=== PATIENT | female | born 1940 | race American Indian/Alaskan Native ===

== ENCOUNTER 2017-03-01 06:33 | Emergency (ER) | payer MEDICARE ==
[2017-03-01 06:47] VITALS: RESP 18
--- NOTE | 2017-03-01 07:37 | C.PDOC ---
History Of Present Illness 77 y/o female with htn and dyslipidemia c/o bilateral back pain, right more than left, from upper back that radiates to lower back that started on Thursday with no preceding injury or heavy lifting. pain is getting worse, not relieved with Aleve. Pain related to movement, and pt is most comfortable in left lateral decubitus position. pt denies chest pain, cough, sob, fever, chills. denies any urinary symptoms, denies abdominal pain; pt vomited once on Thursday. Time Seen by Provider: 03/01/17 07:13 Chief Complaint (Nursing): Back Pain History Per: Patient, Family History/Exam Limitations: no limitations Onset/Duration Of Symptoms: Days (3) Current Symptoms Are (Timing): Worse Quality Of Discomfort: Unable To Describe Severity: Moderate Previous Symptoms: None Associated Symptoms: None Exacerbating Factor(s): Movement Past Medical History Reviewed: Historical Data, Nursing Documentation, Vital Signs Vital Signs: Last Vital Signs Temp 98.8 F 03/01/17 12:27 Pulse 86 03/01/17 12:27 Resp 18 03/01/17 12:27 BP 132/78 03/01/17 12:27 Pulse Ox 86 L 03/01/17 12:27 - Medical History PMH: HTN, Hypercholesterolemia, Hyperlipidemia Denies: Chronic Kidney Disease Surgical History: No Surg Hx Family History: States: Unknown Family Hx - Social History Hx Tobacco Use: No Hx Alcohol Use: No Hx Substance Use: No - Immunization History Hx Tetanus Toxoid Vaccination: No Hx Influenza Vaccination: No Hx Pneumococcal Vaccination: No Review Of Systems Constitutional: Negative for: Fever, Chills Cardiovascular: Negative for: Chest Pain, Light Headedness Respiratory: Negative for: Cough, Shortness of Breath Gastrointestinal: Positive for: Vomiting (once on Thursday). Negative for: Nausea , Abdominal Pain Genitourinary: Negative for: Dysuria, Frequency, Hematuria Musculoskeletal: Positive for: Back Pain. Negative for: Neck Pain, Shoulder Pain Neurological: Negative for: Weakness, Numbness Physical Exam - Physical Exam Appears: Non-toxic, Other (appears uncomfortable. ) Skin: Warm, Dry Head: Atraumatic, Normacephalic Neck: Normal ROM Chest: Symmetrical, No Deformity Cardiovascular: Rhythm Regular, No Murmur Respiratory: Normal Breath Sounds, No Accessory Muscle Use, No Rales, No Rhonchi , No Wheezing Gastrointestinal/Abdominal: Bowel Sounds, Soft, No Tenderness, No Guarding, No Rebound Back: Normal Inspection, Paraspinal Tenderness (upper right and left back, right more than left along rhomboid) Extremity: Bilateral: Atraumatic, No Pedal Edema Pulses: Left Dorsalis Pedis: Normal, Right Dorsalis Pedis: Normal Neurological/Psych: Oriented x3, Normal Speech, Normal Cognition ED Course And Treatment - Laboratory Results Result Diagrams: 03/01/17 08:02 03/01/17 08:02 ECG Interpretation: No Changes From Prior, Abnormal Interpretation Of ECG: sinus bradycardia, 55, left axis deviation, anteroseptal infarct, age undertermined. O2 Sat by Pulse Oximetry: 100 Pulse Ox Interpretation: Normal - Radiology CXR: Read By Radiologist CXR Interpretation: No: Infiltrates Medical Decision Making Medical Decision Makin y.o female with bilateral back pain; likely musculoskelatal, will check labs , ekg, cxr, analgesic and re-eval. 1244 pt feeling better after toradol. discusses with Dr Serra; pt will f/u with him on Thu. will d/c with 5 mg flexeril and ibuprofen or tylenol. Disposition Discussed With : Aminata Serra Doctor Will See Patient In The: Office Counseled Patient/Family Regarding: Studies Performed, Diagnosis, Need For Followup, Rx Given - Disposition Referrals: Aminata Serra MD [Staff Provider] - Disposition: HOME/ ROUTINE Disposition Time: 12:46 Condition: IMPROVED Additional Instructions: Take Tylenol or Ibuprofen/aleve for pain as directed. Take muscle relaxant two times a day; may make you sleepy or dizzy, so please take when someone is home with you. Recommend hot water bottle/warm pack to back several times a day. No heavy lifting. Follow up with Dr Serra in his office on Thu. Prescriptions: Cyclobenzaprine [Flexeril] 5 mg PO BID #10 tab Forms: General Discharge Instructions - Clinical Impression Clinical Impression: Thoracic back sprain
[2017-03-01 08:07] LABS: BASO % 0.9 % (0.0-2.0); EOS # 0.1 K/uL (0.0-0.7); HEMATOCRIT 40.4 % (34.0-47.0); LYMPH # 2.2 K/uL (1.0-4.3); LYMPH % 39.8 % (20.0-40.0); MEAN CELL VOLUME 87.8 fL (81.0-99.0); MEAN CORPUSCULAR HEMOGLOBIN 29.1 pg (27.0-31.0); MEAN CORPUSCULAR HGB CONC 33.1 g/dL (33.0-37.0); MEAN PLATELET VOLUME 7.4 fL (7.2-11.7); MONO # 0.5 K/uL (0.0-0.8); MONO % 8.6 % (0.0-10.0); RED CELL DISTRIBUTION WIDTH 15.1 % (11.5-14.5); WHITE BLOOD COUNT 5.6 K/uL (4.8-10.8)
[2017-03-01 08:17] LABS: CHLORIDE 104 mmol/L (98-107)
[2017-03-01 08:18] LABS: POTASSIUM 4.9 mmol/L (3.6-5.2); SODIUM 141 mmol/L (132-148)
[2017-03-01 08:20] LABS: ALB/GLOB RATIO 1.3 (1.0-2.1); ALKALINE PHOSPHATASE 79 U/L (38-126); AST/SGOT 40 U/L (14-36); BILIRUBIN,TOTAL 1.7 mg/dL (0.2-1.3); BLOOD UREA NITROGEN 17 mg/dL (7-17); CARBON DIOXIDE 22 mmol/L (22-30); GFR AFRICAN-AMERICAN > 60; TOTAL PROTEIN 8.1 g/dL (6.3-8.3)
[2017-03-01 08:21] LABS: GLUCOSE,RANDOM 90 mg/dL (65-105)
[2017-03-01 08:30] LABS: ALT/SGPT < 6 U/L (9-52)
[2017-03-01 08:31] LABS: CALCIUM 9.1 mg/dl (8.6-10.4)
--- NOTE | 2017-03-01 10:40 | RAD ---
HISTORY: back pain COMPARISON: Chest x-ray performed 11/13/15 TECHNIQUE: Chest PA and lateral FINDINGS: LUNGS: No focal consolidation. Please note that chest x-ray has limited sensitivity for the detection of pulmonary masses. PLEURA: No significant pleural effusion identified. No definite pneumothorax . CARDIOVASCULAR: Grossly stable. Ectatic aorta containing dense atherosclerotic calcifications. Heart size appears within normal limits. OSSEOUS STRUCTURES: Degenerative changes. VISUALIZED UPPER ABDOMEN: Unremarkable. OTHER FINDINGS: None. IMPRESSION: No active disease. Findings as above.
[2017-03-01 11:51] LABS: RBC URINE 1 /hpf (0-3); URINE BILIRUBIN NEGATIVE (NEGATIVE); URINE BLOOD NEGATIVE (NEGATIVE); URINE COLOR Yellow (YELLOW); URINE GLUCOSE (UA) NORMAL (Normal); URINE KETONE NEGATIVE (NEGATIVE); URINE LEUKOCYTE ESTERASE NEG Leu/uL (Negative); URINE PROTEIN NEGATIVE (NEGATIVE); URINE UROBILINOGEN NORMAL mg/dL (0.2-1.0); WBC URINE < 1 /hpf (0-5)
[2017-03-01 12:30] VITALS: BP 132/78; PULSE 86; TEMP 98.8
[2017-03-01 12:48] VITALS: O2SAT 100
--- NOTE | 2017-03-03 14:04 | CARD ---
APPROVED REPORT EKG Measurement Heart [id number] <Conclusion> Sinus bradycardia Left axis deviation Anteroseptal infarct, age undetermined Abnormal ECG
== END 2017-03-01 12:47 | disposition home or self-care (01) ==
LOC: C.ER 06:33
DX: S23.3XXA Sprain of ligaments of thoracic spine, initial encounter (principal); X58.XXXA Exposure to other specified factors, initial encounter
CPT/HCPCS: 71020; 80053; 81001; 84484; 85025; 93005; 96374; 99284; J1885

== ENCOUNTER 2018-06-02 07:46 | Day surgery (SDC) | payer MEDICARE ==
[2018-05-28 10:01] VITALS: BMI 26.6
[2018-06-02] MEDS ORDERED: Bupivacaine 0.25% 20 ML INJ IJ ONE (09:33)
[2018-06-02] MEDS ORDERED: Lidocaine/Epinephrine 1% 1:100000 10 ML IJ ONE (09:33)
[2018-06-02] MEDS ORDERED: ceFAZolin IV 1 gm in Dextrose 1 GM/50 ML BAG IVPB ONE (09:33)
[2018-06-02] MEDS ORDERED: Midazolam 2 MG/2 ML VIAL ONE (09:57)
--- NOTE | 2018-06-02 10:49 | PCM.SURG1 ---
Surgeon's Initial Post Op Note - Surgeon's Notes Surgeon: Brijesh Coreas MD Cake Maker: MARIA T Dela Cruz Type of Anesthesia: MAC Pre-Operative Diagnosis: Sebaceous cyst of Neck 1x1 cm Operative Findings: Sebaceous cyst of Neck 2 x1 cm Post-Operative Diagnosis: Sebaceous cyst of Neck 2 x1 cm Operation Performed: Excision of Sebaceous cyst of Neck 2x1 cm. Layered closure of wound 2x1x2 cm Specimen/Specimens Removed: Sebaceous cyst of Neck Estimated Blood Loss: EBL {In ML}: 5 Blood Products Given: N/A Drains Used: No Drains Post-Op Condition: Good Date of Surgery/Procedure: 06/02/18 Time of Surgery/Procedure: 10:49
[2018-06-02 12:30] VITALS: PULSE 58; RESP 16
[2018-06-02 12:31] VITALS: BP 133/78; TEMP 97.6; O2SAT 97
--- NOTE | 2018-06-02 22:28 | OP ---
Copied To: Everett Coreas MD Attending MD: Everett Coreas MD PROCEDURE DATE: 06/02/2018 PREOPERATIVE DIAGNOSIS: Sebaceous cyst of the neck, approximately 1 cm size. POSTOPERATIVE DIAGNOSIS: Sebaceous cyst of the neck, 2 x 1 cm size. PROCEDURES DONE: 1. Excision of the sebaceous cyst of the neck, 2 x 1 cm size. 2. Layered closure of the wound, 2 x 1 x 2 cm size. SURGEON: Everett Coreas MD TYPE OF ANESTHESIA: Local anesthesia plus sedation. ESTIMATED BLOOD LOSS: Around 5 mL. DRAINS: None. PATHOLOGY: The sebaceous cyst was sent for the pathology. COMPLICATIONS: None. INTRAOPERATIVE FINDINGS: The patient had approximately 2 x 1 cm sebaceous cyst extending upto the platysma muscles. DESCRIPTION OF PROCEDURE: On intraoperative steps, this is a 78-year-old female who was diagnosed with a sebaceous cyst of the neck, and the patient was consented for excision of the sebaceous cyst. The patient was brought to the OR, placed supine on the operating table. The right side of the neck was prepped and draped in the usual sterile fashion. An elliptical incision was made surrounding the cyst area and upper and lower flaps were created. The dissection was carried down deep up into the muscles and sebaceous cyst was completely excised. It was sent off the table for pathology. Now, proper hemostasis was achieved, and the wound was approximately 2 x 1 x 2 cm size, and layered closure of the wound was done. The deep subcu and muscles with 2-0 Vicryl and skin with 4-0 Monocryl, and dry sterile dressing was applied. The patient tolerated the procedure well. Count of instruments and gauze was correct. There was no apparent complication. The patient was reversed from sedation and sent to the postanesthesia care unit in stable condition. Everett Coreas MD
== END 2018-06-02 12:24 | disposition home or self-care (01) ==
LOC: C.SDS 07:46
PROVIDERS: ATTEND Surgery Surgical Critical Care
DX: L72.3 Sebaceous cyst (principal)
CPT/HCPCS: 11422; 88305; 88342; J0690; J2250; J3010